=== PATIENT | male | born 1960 | race Caucasian/White ===

== ENCOUNTER 2018-05-18 17:00 | Inpatient (IN) | payer MEDICARE, MEDICAID | END 2018-05-23 12:53 | disposition home or self-care (01) | LOC: PCU 3S 17:00 | DX: A41.9 Sepsis, unspecified organism (principal); J18.9 Pneumonia, unspecified organism; J96.01 Acute respiratory failure with hypoxia; J44.1 Chronic obstructive pulmonary disease with (acute) exacerbation ==

== ENCOUNTER 2020-11-19 23:37 | Inpatient (IN) | payer MEDICARE, MEDICAID ==
[~2020-11-19] VITALS: Ht 185.4 cm; Wt 107.2 kg
[~2020-11-19 23:37] MED LIST: ALBU18HF2 INH; ALBU8HFA PO; LEVO750T46 PO; PRED10TA PO; TEST100V5 IM
--- NOTE | 2020-11-19 23:42 | NUR ---
MD examining the pt and doppler given to MD. Left leg is cold.
[2020-11-19] MEDS ORDERED: heparin 25,000 UNIT/250ml bag 250 ML IV SCH (23:55)
[2020-11-19] MEDS ORDERED: heparin 10,000 units/1 ML INJ IV PRN (23:55)
[2020-11-20] VITALS (20 sets, daily range): BP systolic 117–158; BP diastolic 77–99
[2020-11-20 00:09] LABS: BASOPHILS # (AUTO) 0.1 X10'3 (0-0.2); BASOPHILS % (AUTO) 0.9 % (0-1); EOSINOPHILS # (AUTO) 0.1 X10'3 (0-0.9); EOSINOPHILS % (AUTO) 1.1 % (0-6); HEMATOCRIT 44.5 % (42.0-52.0); HEMOGLOBIN 14.8 g/dl (14.0-17.9); LYMPHOCYTES # (AUTO) 1.3 X10'3 (1.1-4.8); LYMPHOCYTES % (AUTO) 12.6 % (21-51); MEAN CORPUSCULAR HEMOGLOBIN 28.6 PG (27.0-31.0); MEAN CORPUSCULAR HGB CONC 33.2 g/dL (33.0-36.5); MEAN PLATELET VOLUME 6.9 FL (7.4-10.4); MONOCYTES # (AUTO) 1.3 X10'3 (0-0.9); MONOCYTES % (AUTO) 12.6 % (2-12); NEUTROPHILS # (AUTO) 7.4 X10'3 (1.8-7.7); NEUTROPHILS % (AUTO) 72.8 % (42-75); PLATELET COUNT 301 X10'3 (140-440); RED BLOOD COUNT 5.18 X10'6 (4.70-6.10); RED CELL DISTRIBUTION WIDTH 15.9 % (11.5-14.5); WHITE BLOOD COUNT 10.2 X10'3 (4.5-11.0)
--- NOTE | 2020-11-20 00:10 | NUR ---
OR CREW CALLED INCLUDING DR. GRIER.
[2020-11-20 00:17] LABS: ALBUMIN 2.5 G/DL (3.4-5.0); ANION GAP 10 (8-16); BLOOD UREA NITROGEN 21 MG/DL (7-18); BUN/CREATININE RATIO 17.6 (5.4-32.0); CALCIUM 8.7 MG/DL (8.5-10.1); CHLORIDE 107 MMOL/L (99-107); CREATININE 1.19 MG/DL (0.60-1.10); GLUCOSE 109 MG/DL (70-104); POTASSIUM 4.6 MMOL/L (3.5-5.1); SODIUM 143 MMOL/L (135-145); TOTAL CARBON DIOXIDE 26.5 MMOL/L (24-32); eGFR 63 ML/MIN
[2020-11-20] MEDS ORDERED: heparin 25,000 UNIT/250ml bag 250 ML IV SCH (00:20)
[2020-11-20] MEDS ORDERED: heparin 10,000 units/1 ML INJ IV PRN (00:20)
[2020-11-20 00:27] LABS: PARTIAL THROMBOPLASTIN TIME 76 SECONDS (22-32)
--- NOTE | 2020-11-20 00:36 | NUR ---
CALLED LAKSHMI FROM [facility] . AND CIPRIANO THE OR ATTENDANT
[2020-11-20] MEDS: tPA-cathflo 2mg/2ml IV flush 4 MG in normal saline 100ml IV soln 100 ML ICATH SCH ×4 (00:50→19:09)
[2020-11-20] MEDS ORDERED: LIDOcaine 1%/PF 5ML 10 MG/ML VIAL ONE (00:59)
[2020-11-20] MEDS ORDERED: heparin 1,000 UNITS/NS 500ml 500 ML ONE ×2 (00:59→02:11)
[2020-11-20] MEDS ORDERED: midazolam 1 mg/ML 2ml injection ONE ×2 (00:59→02:02)
[2020-11-20] MEDS ORDERED: fentaNYL/PF 50MCG/1 ML 2ML syringe ONE ×3 (00:59→16:29)
[2020-11-20] MEDS ORDERED: iohexol 300mg/ml 100ml inj. ONE ×2 (00:59→13:58)
[2020-11-20] MEDS ORDERED: LIDOcaine 2% 10ml TOPICAL JELLY (Urojet) TP ONE (02:50)
[2020-11-20] MEDS ORDERED: morphine 2 MG/ML inj. syringe IV PRN (02:50)
[2020-11-20] MEDS ORDERED: potassium Cl 20 mEq SR tablet PO PRN (02:50)
[2020-11-20] MEDS ORDERED: magnesium hydroxide 30ml (MOM) UD suspension PO PRN (02:50)
[2020-11-20] MEDS ORDERED: acetaminophen 325mg tablet PO PRN ×2 (02:50)
[2020-11-20] MEDS ORDERED: ondansetron/PF 4mg/2ml inj IV PRN (02:50)
[2020-11-20] MEDS: heparin 1,000 UNITS/NS 500ml 500 ML IV SCH ×3 (03:43→19:12)
[2020-11-20] MEDS: K, MAG and/or Phos replacement - Verify level? MC SCH ×2 (04:23→08:00)
[2020-11-20 06:13] LABS: BASOPHILS # (AUTO) 0.1 X10'3 (0-0.2); BASOPHILS % (AUTO) 0.8 % (0-1); EOSINOPHILS # (AUTO) 0.1 X10'3 (0-0.9); EOSINOPHILS % (AUTO) 1.3 % (0-6); HEMATOCRIT 44.7 % (42.0-52.0); HEMOGLOBIN 14.6 g/dl (14.0-17.9); LYMPHOCYTES # (AUTO) 1.2 X10'3 (1.1-4.8); LYMPHOCYTES % (AUTO) 13.9 % (21-51); MEAN CORPUSCULAR HEMOGLOBIN 28.2 PG (27.0-31.0); MEAN CORPUSCULAR HGB CONC 32.7 g/dL (33.0-36.5); MEAN CORPUSCULAR VOLUME 86.2 FL (78-98); MEAN PLATELET VOLUME 7.2 FL (7.4-10.4); MONOCYTES # (AUTO) 1.1 X10'3 (0-0.9); MONOCYTES % (AUTO) 12.1 % (2-12); NEUTROPHILS # (AUTO) 6.5 X10'3 (1.8-7.7); NEUTROPHILS % (AUTO) 71.9 % (42-75); PLATELET COUNT 278 X10'3 (140-440); RED BLOOD COUNT 5.19 X10'6 (4.70-6.10); RED CELL DISTRIBUTION WIDTH 15.7 % (11.5-14.5)
[2020-11-20] MEDS: morphine 4 MG/ML inj SYRINge IV PRN ×2 (06:18→08:34)
--- NOTE | 2020-11-20 06:22 | NUR ---
Problems reprioritized. Patient report given, questions answered & plan of care reviewed with OLIVER Carson.
[2020-11-20 08:58] LABS: HEMATOCRIT 44.3 % (42.0-52.0); HEMOGLOBIN 14.7 g/dl (14.0-17.9); MEAN CORPUSCULAR HEMOGLOBIN 28.5 PG (27.0-31.0); MEAN CORPUSCULAR HGB CONC 33.1 g/dL (33.0-36.5); MEAN CORPUSCULAR VOLUME 86.1 FL (78-98); PLATELET COUNT 279 X10'3 (140-440); RED BLOOD COUNT 5.15 X10'6 (4.70-6.10); RED CELL DISTRIBUTION WIDTH 15.8 % (11.5-14.5); WHITE BLOOD COUNT 9.2 X10'3 (4.5-11.0)
--- NOTE | 2020-11-20 10:00 | NUR ---
Dr Oliva called to check on pt. Reported that I was unable to find a left dorsalis pedal pulse with doppler. Left posterior tibial pulse was present with doppler. Pt able to move bilateral feet. Pt reporting increasing reperfusion pain. Received orders to continue monitoring and report angiogram results.
[2020-11-20] MEDS ORDERED: BUPR150T8 PO (10:31)
[2020-11-20] MEDS ORDERED: PRED20TA PO (10:31)
[2020-11-20] MEDS ORDERED: morphine 4 MG/ML inj SYRINge IV PRN (11:55)
[2020-11-20 14:05] LABS: HEMATOCRIT 46.7 % (42.0-52.0); HEMOGLOBIN 15.2 g/dl (14.0-17.9); MEAN CORPUSCULAR HEMOGLOBIN 28.5 PG (27.0-31.0); MEAN CORPUSCULAR HGB CONC 32.5 g/dL (33.0-36.5); MEAN CORPUSCULAR VOLUME 87.5 FL (78-98); PLATELET COUNT 276 X10'3 (140-440); RED BLOOD COUNT 5.34 X10'6 (4.70-6.10); RED CELL DISTRIBUTION WIDTH 16.3 % (11.5-14.5); WHITE BLOOD COUNT 9.1 X10'3 (4.5-11.0)
[2020-11-20 14:14] LABS: ALBUMIN 2.5 G/DL (3.4-5.0); ANION GAP 10 (8-16); BLOOD UREA NITROGEN 19 MG/DL (7-18); BUN/CREATININE RATIO 17.6 (5.4-32.0); CALCIUM 8.5 MG/DL (8.5-10.1); CHLORIDE 106 MMOL/L (99-107); CREATININE 1.08 MG/DL (0.60-1.10); GLUCOSE 85 MG/DL (70-104); POTASSIUM 4.2 MMOL/L (3.5-5.1); SODIUM 143 MMOL/L (135-145); TOTAL CARBON DIOXIDE 27.1 MMOL/L (24-32); eGFR 70 ML/MIN
[2020-11-20] MEDS ORDERED: naloxone 0.4 mg/ml inj IV PRN (15:05)
--- NOTE | 2020-11-20 15:30 | NUR ---
Dr. Nance rounded on pt and assessed BLE closely. She was able to doppler and cristian a dorsalis pedal pulse and marked pulse. 500 mL fluid bolus ordered and fluid rate of NS at 125 mL/hr ordered.
[2020-11-20] MEDS ORDERED: glucagon, human recombinant 1mg kit ONE (15:42)
--- NOTE | 2020-11-20 16:00 | NUR ---
Angio nurse Keila BOYD discovered tPA infusing at incorrect rate and reported this to DR Alexander. Correction to rate made.
[2020-11-20] MEDS: HYDROmorph./NS 0.2 mg/ml CADD 100 ML IV SCH ×5 (17:12→23:00)
--- NOTE | 2020-11-20 18:24 | NUR ---
Problems reprioritized. Patient report given, questions answered & plan of care reviewed with OLIVER Martinez.
[2020-11-20] MEDS: buPROPion SR 150mg tablet PO SCH (20:52)
[2020-11-20 22:12] LABS: HEMOGLOBIN 14.4 g/dl (14.0-17.9); MEAN CORPUSCULAR HEMOGLOBIN 28.8 PG (27.0-31.0); MEAN CORPUSCULAR HGB CONC 32.8 g/dL (33.0-36.5); MEAN CORPUSCULAR VOLUME 87.8 FL (78-98); MEAN PLATELET VOLUME 7.1 FL (7.4-10.4); PLATELET COUNT 239 X10'3 (140-440); RED BLOOD COUNT 5.01 X10'6 (4.70-6.10); RED CELL DISTRIBUTION WIDTH 15.7 % (11.5-14.5); WHITE BLOOD COUNT 9.2 X10'3 (4.5-11.0)
[2020-11-21] VITALS (21 sets, daily range): BP systolic 138–167; BP diastolic 81–104
[2020-11-21] MEDS: HYDROmorph./NS 0.2 mg/ml CADD 100 ML IV SCH ×12 (01:00→23:00)
[2020-11-21 02:55] LABS: BASOPHILS # (AUTO) 0.1 X10'3 (0-0.2); BASOPHILS % (AUTO) 0.5 % (0-1); EOSINOPHILS # (AUTO) 0.1 X10'3 (0-0.9); EOSINOPHILS % (AUTO) 1.1 % (0-6); HEMATOCRIT 45.9 % (42.0-52.0); HEMOGLOBIN 15.2 g/dl (14.0-17.9); LYMPHOCYTES # (AUTO) 0.7 X10'3 (1.1-4.8); LYMPHOCYTES % (AUTO) 6.3 % (21-51); MEAN CORPUSCULAR HEMOGLOBIN 28.7 PG (27.0-31.0); MEAN CORPUSCULAR VOLUME 86.9 FL (78-98); MEAN PLATELET VOLUME 7.1 FL (7.4-10.4); MONOCYTES # (AUTO) 1.1 X10'3 (0-0.9); MONOCYTES % (AUTO) 10.6 % (2-12); NEUTROPHILS # (AUTO) 8.7 X10'3 (1.8-7.7); NEUTROPHILS % (AUTO) 81.5 % (42-75); PLATELET COUNT 267 X10'3 (140-440); RED BLOOD COUNT 5.28 X10'6 (4.70-6.10); RED CELL DISTRIBUTION WIDTH 15.6 % (11.5-14.5); WHITE BLOOD COUNT 10.7 X10'3 (4.5-11.0)
[2020-11-21] MEDS: heparin 1,000 UNITS/NS 500ml 500 ML IV SCH ×2 (03:25→16:37)
[2020-11-21] MEDS: tPA-cathflo 2mg/2ml IV flush 4 MG in normal saline 100ml IV soln 100 ML ICATH SCH ×4 (03:26→21:40)
[2020-11-21 03:29] LABS: ALANINE AMINOTRANSFERASE 32 U/L (12-78); ALBUMIN 2.5 G/DL (3.4-5.0); ALBUMIN/GLOBULIN RATIO 0.6 (1.1-1.5); ALKALINE PHOSPHATASE 135 IU/L (46-116); ANION GAP 9 (8-16); ASPARTATE AMINO TRANSFERASE 21 U/L (10-37); BILIRUBIN,TOTAL 0.8 MG/DL (0.1-1.0); BLOOD UREA NITROGEN 17 MG/DL (7-18); BUN/CREATININE RATIO 13.8 (5.4-32.0); CALCIUM 8.5 MG/DL (8.5-10.1); CHLORIDE 105 MMOL/L (99-107); CREATININE 1.23 MG/DL (0.60-1.10); GLUCOSE 89 MG/DL (70-104); POTASSIUM 4.5 MMOL/L (3.5-5.1); SODIUM 141 MMOL/L (135-145); TOTAL CARBON DIOXIDE 27.5 MMOL/L (24-32); TOTAL PROTEIN 6.5 G/DL (6.4-8.2); eGFR 60 ML/MIN
--- NOTE | 2020-11-21 06:32 | NUR ---
Problems reprioritized. Patient report given, questions answered & plan of care reviewed with OLIVER Cox.
[2020-11-21] MEDS: K, MAG and/or Phos replacement - Verify level? MC SCH (08:00)
[2020-11-21] MEDS: buPROPion SR 150mg tablet PO SCH ×2 (08:41→23:03)
[2020-11-21] MEDS: predniSONE 20 mg tablet PO SCH (08:41)
[2020-11-21 09:14] LABS: HEMATOCRIT 45.5 % (42.0-52.0); HEMOGLOBIN 15.1 g/dl (14.0-17.9); MEAN CORPUSCULAR HEMOGLOBIN 28.9 PG (27.0-31.0); MEAN CORPUSCULAR HGB CONC 33.1 g/dL (33.0-36.5); MEAN CORPUSCULAR VOLUME 87.3 FL (78-98); MEAN PLATELET VOLUME 7.2 FL (7.4-10.4); PLATELET COUNT 255 X10'3 (140-440); RED BLOOD COUNT 5.22 X10'6 (4.70-6.10); RED CELL DISTRIBUTION WIDTH 15.5 % (11.5-14.5); WHITE BLOOD COUNT 10.8 X10'3 (4.5-11.0)
[2020-11-21] MEDS: pantoprazole 40 MG vial IV SCH (12:56)
[2020-11-21 14:29] LABS: HEMOGLOBIN 15.4 g/dl (14.0-17.9); MEAN CORPUSCULAR HEMOGLOBIN 28.8 PG (27.0-31.0); MEAN CORPUSCULAR HGB CONC 32.7 g/dL (33.0-36.5); MEAN CORPUSCULAR VOLUME 88.1 FL (78-98); MEAN PLATELET VOLUME 7.2 FL (7.4-10.4); PLATELET COUNT 261 X10'3 (140-440); RED BLOOD COUNT 5.34 X10'6 (4.70-6.10); RED CELL DISTRIBUTION WIDTH 15.8 % (11.5-14.5); WHITE BLOOD COUNT 12.5 X10'3 (4.5-11.0)
[2020-11-21] MEDS: LORazepam 2 mg/ml vial IV PRN (14:53)
[2020-11-21] MEDS: dextrose 5%-normal saline 1,000 ML IV SCH ×2 (14:53→22:50)
[2020-11-21] MEDS ORDERED: iohexol 300mg/ml 100ml inj. ONE ×2 (17:37→18:37)
[2020-11-21] MEDS ORDERED: fentaNYL/PF 50MCG/1 ML 2ML syringe ONE ×2 (17:52→18:23)
[2020-11-21] MEDS ORDERED: midazolam 1 mg/ML 2ml injection ONE (18:26)
[2020-11-21] MEDS ORDERED: LIDOcaine 1%/PF 5ML 10 MG/ML VIAL ONE ×2 (18:34)
[2020-11-21] MEDS ORDERED: heparin 1,000 UNITS/NS 500ml 500 ML ONE (18:37)
[2020-11-21] MEDS ORDERED: iohexol 300 MG/1 ML 50ml polymer ONE (18:44)
[2020-11-21] MEDS ORDERED: heparin 1,000unit/ml 10ml vial 10 ML ONE (19:00)
--- NOTE | 2020-11-21 19:07 | NUR ---
Pt left transported to IR at 1745, transported via bed with heart monitor, O2 2L, mask and x2 RNs ; hand off given at bedside to transport staff ; VS stable ; ETA is 45 minutes if no further interventions beyond "pictures". Hand off given to oncoming RN, PROGRAMMING MANAGER Dilaudid, Heparin and tPA drips still infusing, D5NS @125, No s/s of distress noted.
[2020-11-21] MEDS ORDERED: tPA-cathflo 2mg/2ml IV flush 4 MG in normal saline 100ml IV soln 100 ML ICATH SCH (19:55)
[2020-11-21] MEDS ORDERED: nitroGLYCERIN-Tridil 50MG/D5W 250 ML IV ONE (19:58)
[2020-11-21] MEDS: heparin 25,000 UNIT/250ml bag 250 ML IV SCH (20:10)
[2020-11-21 22:00] LABS: HEMATOCRIT 46.7 % (42.0-52.0); HEMOGLOBIN 15.6 g/dl (14.0-17.9); MEAN CORPUSCULAR HEMOGLOBIN 28.9 PG (27.0-31.0); MEAN CORPUSCULAR HGB CONC 33.3 g/dL (33.0-36.5); MEAN CORPUSCULAR VOLUME 86.7 FL (78-98); MEAN PLATELET VOLUME 7.2 FL (7.4-10.4); PLATELET COUNT 233 X10'3 (140-440); RED BLOOD COUNT 5.39 X10'6 (4.70-6.10); RED CELL DISTRIBUTION WIDTH 15.6 % (11.5-14.5); WHITE BLOOD COUNT 10.6 X10'3 (4.5-11.0)
[2020-11-22] VITALS (19 sets, daily range): BP systolic 128–189; BP diastolic 54–111
[2020-11-22] MEDS ORDERED: labetalol 20mg/4ml (5mg/ml) syringe IV PRN ×2 (00:15→18:55)
[2020-11-22] MEDS: HYDROmorph./NS 0.2 mg/ml CADD 100 ML IV SCH ×6 (01:00→23:00)
[2020-11-22] MEDS: dextrose 5%-normal saline 1,000 ML IV SCH ×3 (05:55→21:55)
[2020-11-22 06:22] LABS: BASOPHILS # (AUTO) 0.1 X10'3 (0-0.2); BASOPHILS % (AUTO) 0.7 % (0-1); EOSINOPHILS # (AUTO) 0.1 X10'3 (0-0.9); EOSINOPHILS % (AUTO) 0.7 % (0-6); HEMATOCRIT 45.9 % (42.0-52.0); LYMPHOCYTES # (AUTO) 0.7 X10'3 (1.1-4.8); LYMPHOCYTES % (AUTO) 6.5 % (21-51); MEAN CORPUSCULAR HEMOGLOBIN 28.6 PG (27.0-31.0); MEAN CORPUSCULAR HGB CONC 32.7 g/dL (33.0-36.5); MEAN CORPUSCULAR VOLUME 87.4 FL (78-98); MEAN PLATELET VOLUME 7.5 FL (7.4-10.4); MONOCYTES # (AUTO) 1.5 X10'3 (0-0.9); MONOCYTES % (AUTO) 13.4 % (2-12); NEUTROPHILS % (AUTO) 78.7 % (42-75); PLATELET COUNT 235 X10'3 (140-440); RED BLOOD COUNT 5.25 X10'6 (4.70-6.10); RED CELL DISTRIBUTION WIDTH 15.5 % (11.5-14.5); WHITE BLOOD COUNT 11.4 X10'3 (4.5-11.0)
[2020-11-22] MEDS: K, MAG and/or Phos replacement - Verify level? MC SCH (08:00)
[2020-11-22] MEDS: tPA-cathflo 2mg/2ml IV flush 4 MG in normal saline 100ml IV soln 100 ML ICATH SCH ×2 (08:21→16:21)
[2020-11-22] MEDS: predniSONE 20 mg tablet PO SCH (08:40)
[2020-11-22] MEDS: pantoprazole 40 MG vial IV SCH (08:40)
[2020-11-22] MEDS: buPROPion SR 150mg tablet PO SCH ×2 (08:40→20:00)
[2020-11-22 09:36] LABS: HEMATOCRIT 45.2 % (42.0-52.0); HEMOGLOBIN 14.9 g/dl (14.0-17.9); MEAN CORPUSCULAR HEMOGLOBIN 28.8 PG (27.0-31.0); MEAN CORPUSCULAR HGB CONC 32.9 g/dL (33.0-36.5); MEAN CORPUSCULAR VOLUME 87.4 FL (78-98); MEAN PLATELET VOLUME 7.1 FL (7.4-10.4); PLATELET COUNT 246 X10'3 (140-440); RED BLOOD COUNT 5.17 X10'6 (4.70-6.10); RED CELL DISTRIBUTION WIDTH 15.4 % (11.5-14.5); WHITE BLOOD COUNT 10.1 X10'3 (4.5-11.0)
[2020-11-22] MEDS ORDERED: iohexol 300mg/ml 100ml inj. ONE ×2 (11:02→12:59)
[2020-11-22] MEDS ORDERED: fentaNYL/PF 50MCG/1 ML 2ML syringe ONE ×4 (12:36→20:49)
[2020-11-22] MEDS ORDERED: ondansetron/PF 4mg/2ml inj ONE ×2 (12:37→19:36)
[2020-11-22] MEDS ORDERED: midazolam 1 mg/ML 2ml injection ONE ×3 (12:50→19:29)
[2020-11-22] MEDS ORDERED: heparin 1,000 UNITS/NS 500ml 500 ML ONE (12:59)
[2020-11-22] MEDS ORDERED: LIDOcaine 1%/PF 5ML 10 MG/ML VIAL ONE (12:59)
[2020-11-22] MEDS ORDERED: heparin 1,000unit/ml 10ml vial 10 ML ONE ×2 (14:10→21:11)
[2020-11-22] MEDS ORDERED: LIDOcaine 1% (10mg/ml) 2ml vial ONE (18:20)
[2020-11-22] MEDS ORDERED: heparin 10,000 units/1 ML INJ ONE (18:20)
[2020-11-22] MEDS ORDERED: hydrALAZINE 20mg/ml inj. IV PRN (18:55)
[2020-11-22] MEDS ORDERED: morphine 4 MG/ML inj SYRINge IV PRN (18:55)
[2020-11-22] MEDS ORDERED: morphine 2 MG/ML inj. syringe IV PRN (18:55)
[2020-11-22] MEDS ORDERED: fentaNYL/PF 50MCG/1 ML 2ML syringe IV PRN ×2 (18:55)
[2020-11-22] MEDS ORDERED: ringers solution, lacted 1,000 ML IV SCH (18:55)
[2020-11-22] MEDS ORDERED: ondansetron/PF 4mg/2ml inj IV PRN (18:55)
[2020-11-22] MEDS ORDERED: propofol inj 20 ML IV ONE (19:30)
[2020-11-22] MEDS ORDERED: rocuronium 10mg/ml inj IV ONE ×2 (19:30→20:51)
[2020-11-22] MEDS ORDERED: LIDOcaine 2% (20mg/ml) 5ml vial ONE (19:30)
[2020-11-22] MEDS ORDERED: dexamethasone sod phosphate 4mg/ml inj. ONE (19:30)
--- NOTE | 2020-11-22 19:34 | NUR ---
Patient taken to surgery for procedure; left in alert and responsive state, denied respiratory and physical distress at time of leaving. Vitals 139/77; 88; 18; 98.0; 95 on 2L
[2020-11-22] MEDS ORDERED: glycopyrrolate 0.2mg/ml inj ONE (19:36)
[2020-11-22] MEDS ORDERED: neostigmine methylsulfate 1 MG/ML 10ml vial ONE (19:36)
[2020-11-22] MEDS ORDERED: sevoflurane 250ml liquid IH ONE (19:36)
[2020-11-22] MEDS ORDERED: ceFAZolin 1000mg inj ONE ×2 (19:56)
--- NOTE | 2020-11-22 20:09 | NUR ---
Pt left transported to IR for imaging; transported via bed with heart monitor, O2 2L, mask and x2 RNs ; Pt returned at 1600 ; upon return D5NS, CADD Dilaudid, and Heparin still infusing, tPA discontinued ; No s/s of distress noted. New orders to pull sheath when ACT <150 ; ACT resulted 136 at 1700 ; MD Pj notified , MD educated patient and scheduled for sx. Consent obtained; MD Joanna removed sheath at 1745; Dressing clean , dry and intact, no swelling, edema or bruising at removal site ; Frequwnt monitoring for changes ; Hand off given at bedside to transport staff ; VS stable ;, Hand off given to oncoming RN, Pt left floor with transport RNs at approx 1930
[2020-11-22] MEDS ORDERED: iohexol 300 MG/1 ML 50ml polymer ONE (20:22)
[2020-11-22 22:59] LABS: PARTIAL THROMBOPLASTIN TIME 56 SECONDS (22-32)
[2020-11-22] MEDS: heparin 25,000 UNIT/250ml bag 250 ML IV SCH (23:19)
[2020-11-23] VITALS (21 sets, daily range): BP systolic 101–168; BP diastolic 73–151
[2020-11-23] MEDS: tPA-cathflo 2mg/2ml IV flush 4 MG in normal saline 100ml IV soln 100 ML ICATH SCH (00:21)
[2020-11-23] MEDS ORDERED: heparin 25,000 UNIT/250ml bag 250 ML IV SCH ×2 (00:35→06:40)
[2020-11-23] MEDS ORDERED: heparin 10,000 units/1 ML INJ IV PRN (00:35)
[2020-11-23] MEDS: HYDROmorph./NS 0.2 mg/ml CADD 100 ML IV SCH ×3 (01:00→05:00)
[2020-11-23] MEDS: ceFAZolin/D5W- 1GM premix 50 ML IV SCH ×2 (01:42→08:48)
[2020-11-23 04:00] LABS: BASOPHILS % (AUTO) 0 % (0-1); EOSINOPHILS % (AUTO) 0 % (0-6); HEMATOCRIT 41.5 % (42.0-52.0); HEMOGLOBIN 13.6 g/dl (14.0-17.9); LYMPHOCYTES # (AUTO) 0.5 X10'3 (1.1-4.8); LYMPHOCYTES % (AUTO) 3.4 % (21-51); MEAN CORPUSCULAR HEMOGLOBIN 28.5 PG (27.0-31.0); MEAN CORPUSCULAR HGB CONC 32.9 g/dL (33.0-36.5); MEAN CORPUSCULAR VOLUME 86.6 FL (78-98); MEAN PLATELET VOLUME 7.1 FL (7.4-10.4); MONOCYTES # (AUTO) 0.9 X10'3 (0-0.9); MONOCYTES % (AUTO) 7.1 % (2-12); NEUTROPHILS # (AUTO) 11.9 X10'3 (1.8-7.7); NEUTROPHILS % (AUTO) 89.5 % (42-75); PLATELET COUNT 241 X10'3 (140-440); RED BLOOD COUNT 4.79 X10'6 (4.70-6.10); RED CELL DISTRIBUTION WIDTH 15.5 % (11.5-14.5); WHITE BLOOD COUNT 13.3 X10'3 (4.5-11.0)
[2020-11-23] MEDS: K, MAG and/or Phos replacement - Verify level? MC SCH (08:00)
[2020-11-23] MEDS: buPROPion SR 150mg tablet PO SCH ×2 (08:48→19:29)
[2020-11-23] MEDS: predniSONE 20 mg tablet PO SCH (08:48)
[2020-11-23] MEDS: normal saline 1000ml 1,000 ML IV SCH (18:00)
--- NOTE | 2020-11-23 19:13 | NUR ---
ART line D/c'd at 1630 , VIKI lopez'd at 1630 per MD order.
[2020-11-23] MEDS: apixaban 5mg tablet PO SCH ×2 (19:30→19:37)
[2020-11-24] VITALS (16 sets, daily range): BP systolic 116–149; BP diastolic 69–97
[2020-11-24] MEDS: LORazepam 2 mg/ml vial IV PRN (01:44)
[2020-11-24 03:22] LABS: BASOPHILS # (AUTO) 0.1 X10'3 (0-0.2); EOSINOPHILS # (AUTO) 0.1 X10'3 (0-0.9); EOSINOPHILS % (AUTO) 0.6 % (0-6); HEMATOCRIT 36.6 % (42.0-52.0); HEMOGLOBIN 12.1 g/dl (14.0-17.9); LYMPHOCYTES % (AUTO) 8.2 % (21-51); MEAN CORPUSCULAR HEMOGLOBIN 28.4 PG (27.0-31.0); MEAN CORPUSCULAR HGB CONC 32.9 g/dL (33.0-36.5); MEAN CORPUSCULAR VOLUME 86.2 FL (78-98); MONOCYTES # (AUTO) 1.7 X10'3 (0-0.9); NEUTROPHILS # (AUTO) 9.2 X10'3 (1.8-7.7); NEUTROPHILS % (AUTO) 76.2 % (42-75); PLATELET COUNT 253 X10'3 (140-440); RED BLOOD COUNT 4.25 X10'6 (4.70-6.10); RED CELL DISTRIBUTION WIDTH 15.6 % (11.5-14.5)
[2020-11-24 04:12] LABS: ANION GAP 2 (8-16); BLOOD UREA NITROGEN 19 MG/DL (7-18); BUN/CREATININE RATIO 19.8 (5.4-32.0); CHLORIDE 100 MMOL/L (99-107); CREATININE 0.96 MG/DL (0.60-1.10); GLUCOSE 115 MG/DL (70-104); SODIUM 130 MMOL/L (135-145); TOTAL CARBON DIOXIDE 27.7 MMOL/L (24-32); eGFR 80 ML/MIN
[2020-11-24] MEDS: K, MAG and/or Phos replacement - Verify level? MC SCH (08:00)
[2020-11-24] MEDS: pantoprazole 40mg Tablet.DR PO SCH ×2 (08:11→08:13)
[2020-11-24] MEDS: apixaban 5mg tablet PO SCH ×2 (08:11→20:12)
[2020-11-24] MEDS: buPROPion SR 150mg tablet PO SCH ×2 (08:12→20:11)
[2020-11-24] MEDS: predniSONE 20 mg tablet PO SCH (08:12)
[2020-11-24] MEDS: HYDROmorph./NS 0.2 mg/ml CADD 100 ML IV SCH ×6 (11:00→23:00)
[2020-11-24] MEDS: normal saline 1000ml 1,000 ML IV SCH (14:52)
--- NOTE | 2020-11-24 16:55 | NUR ---
Patient just arrived to his new room accompanied by ICU nurse. Patient has a wound vac connected to his left calf wound. Wound vac drainage was sanguinous. Dilaudid CADD setting was checked upon arrival. Call light was given to patient to call for assistance.
--- NOTE | 2020-11-24 18:34 | NUR ---
Problems reprioritized. Patient report given, questions answered & plan of care reviewed with Radha BOYD.
--- NOTE | 2020-11-24 18:41 | NUR ---
Patient in room [facility]. I have received report from JHOAN BOYD and had the opportunity to ask questions and assume patient care. Addendum: 11/24/20 at 1842 by Radha Jones RN Amended: Links added.
[2020-11-25] VITALS: BP 129/74
[2020-11-25] MEDS: HYDROmorph./NS 0.2 mg/ml CADD 100 ML IV SCH ×12 (01:00→23:00)
[2020-11-25 06:00] VITALS: BP 133/77
--- NOTE | 2020-11-25 06:21 | NUR ---
Student documentation: I have reviewed and agree with all interventions, assessments performed and documented by TIO BOYD STUDENT RACHELLE MILLER. Addendum: 11/25/20 at 0622 by Radha Jones RN Amended: Links added.
--- NOTE | 2020-11-25 06:22 | NUR ---
Problems reprioritized. Patient report given, questions answered & plan of care reviewed with JACKIE BOYD. Addendum: 11/25/20 at 0622 by Radha Jones RN Amended: Links added.
[2020-11-25] MEDS: pantoprazole 40mg Tablet.DR PO SCH (07:25)
[2020-11-25] MEDS: predniSONE 20 mg tablet PO SCH (07:25)
[2020-11-25] MEDS: buPROPion SR 150mg tablet PO SCH ×2 (07:25→19:35)
[2020-11-25] MEDS: apixaban 5mg tablet PO SCH ×2 (07:25→19:35)
[2020-11-25] MEDS: K, MAG and/or Phos replacement - Verify level? MC SCH (08:00)
[2020-11-25] MEDS: normal saline 1000ml 1,000 ML IV SCH (08:08)
[2020-11-25 11:00] VITALS: BP 123/77
--- NOTE | 2020-11-25 11:06 | NUR ---
Initial: Pt admitted w/ increasing L leg pain, underwent tibial thrombectomy 11/22 w/ wound vac in place per EMR. Pt able to eat well, avg 100% of meals on regular diet meeting needs. LBM 11/25. No nutritional intervention implemented at this time, will continue to monitor. Recs: 1. Continue Regular diet as tolerated 2. Bowel care per rx 3. Scaled wt this admit, weekly wts thereafter Addendum: 11/25/20 at [address] Amended: Links added.
--- NOTE | 2020-11-25 18:09 | NUR ---
Patient in room [facility] 346. I have received report from DORY BOYD and had the opportunity to ask questions and assume patient care. Addendum: 11/25/20 at 1810 by Radha Jones RN Amended: Links added.
--- NOTE | 2020-11-25 18:15 | NUR ---
Problems reprioritized. Patient report given, questions answered & plan of care reviewed with ELADIO BOYD.
[2020-11-25 20:00] VITALS: BP 128/69
[2020-11-26] VITALS: BP 139/88
[2020-11-26] MEDS: HYDROmorph./NS 0.2 mg/ml CADD 100 ML IV SCH ×12 (01:00→21:51)
[2020-11-26] MEDS: normal saline 1000ml 1,000 ML IV SCH ×2 (03:01→21:51)
--- NOTE | 2020-11-26 03:17 | NUR ---
res volume 97.3 doses given 101 attempted 127 19.52 given
[2020-11-26] MEDS: CADD PCA waste documentation MC PRN (03:29)
--- NOTE | 2020-11-26 04:37 | NUR ---
resting eyes closed using urinal to void, no drainage to left leg wound wound vac in place at 75mmhg. pt stated tonight leg more painful and using Dilaudid cadd for pain control. appears comfortable at this time.
--- NOTE | 2020-11-26 05:27 | NUR ---
Student documentation: I have reviewed and agree with all interventions, assessments performed and documented by RACHELLE KINSEY RN STUDENT. Addendum: 11/26/20 at 0528 by Radha Jones RN Amended: Links added.
--- NOTE | 2020-11-26 06:03 | NUR ---
Problems reprioritized. Patient report given, questions answered & plan of care reviewed with JOSE MIGUEL BOYD. Addendum: 11/26/20 at 0634 by Radha Jones RN Amended: Links added.
--- NOTE | 2020-11-26 06:52 | NUR ---
Patient in room [facility] 346A. I have received report from OLIVER DELACRUZ and had the opportunity to ask questions and assume patient care.
[2020-11-26 07:00] VITALS: BP 118/79
[2020-11-26] MEDS: apixaban 5mg tablet PO SCH ×2 (07:53→20:47)
[2020-11-26] MEDS: predniSONE 20 mg tablet PO SCH (07:53)
[2020-11-26] MEDS: clopidogrel 75mg tablet PO SCH (07:53)
[2020-11-26] MEDS: buPROPion SR 150mg tablet PO SCH ×2 (07:53→20:47)
[2020-11-26] MEDS: pantoprazole 40mg Tablet.DR PO SCH (07:53)
[2020-11-26] MEDS: K, MAG and/or Phos replacement - Verify level? MC SCH (07:55)
[2020-11-26] MEDS ORDERED: silver nitrate applicator stick TP ONE (08:10)
[2020-11-26 11:38] VITALS: BP 130/86
[2020-11-26] MEDS ORDERED: LIDOCAINE 1%/EPI 1:100,000 inj. 10 ML multi-dose vial ONE (14:34)
--- NOTE | 2020-11-26 15:39 | NUR ---
WOUND VAC EDUCATION PROVIDED BY WOUND CARE 1. Patient instructed to call the Wound Center or their Home Health Agency immediately if: * They notice a change in the color or amount of the fluid in the canister. * Their wound looks more red than usual or has a foul smell. * The skin around their wound looks reddened or irritated. * The dressing feels loose or appears to be loose. * They experience any increase or changes in their pain. * The alarm will not turn off. 2. Patient instructed that they should not be disconnected from suction for more than 2 hours at a time. * If they are not able to get the suction back on, they need to remove the dressing and take all of the foam out of the wound. * Then moisten sterile gauze with normal saline and place on/in the wound. * Change the dressing once a day until arrangements have been made to replace the wound vac dressing. 3. Patient instructed to turn the wound vac machine OFF and call 911 or go to the ED immediately if their canister fills rapidly with blood. 4. If any of these occur while in the hospital tell a nurse immediately. Addendum: 11/26/20 at 1539 by Mathew Lopez RN Amended: Links added.
--- NOTE | 2020-11-26 18:31 | NUR ---
Problems reprioritized. Patient report given, questions answered & plan of care reviewed with JOSE MIGUEL BOYD. Addendum: 11/26/20 at 1832 by Radha Jones RN Amended: Links added.
--- NOTE | 2020-11-26 18:39 | NUR ---
Problems reprioritized. Patient report given, questions answered & plan of care reviewed with OLIVER DELACRUZ.
[2020-11-26 20:00] VITALS: BP 139/86
--- NOTE | 2020-11-26 20:53 | NUR ---
up to bedside commode to void and stool then pt assisted back to chair leg elevated and tshirt on instead of a gown per pt request.
[2020-11-26 23:57] VITALS: BP 118/83
[2020-11-27] MEDS: HYDROmorph./NS 0.2 mg/ml CADD 100 ML IV SCH ×12 (01:00→23:00)
--- NOTE | 2020-11-27 04:35 | NUR ---
RESTING IN RECLINER CHAIR AND LEFT LEG ELEVATED. FEET WARM PALPABLE PULSES USING CADD WITH PAIN CONTROL AND HAD 4 BM'S YESTERDAY NONE SO FAR THIS AM.
--- NOTE | 2020-11-27 06:01 | NUR ---
Problems reprioritized. Patient report given, questions answered & plan of care reviewed with DORY BOYD. Addendum: 11/27/20 at 0603 by Radha Jones RN Amended: Links added.
--- NOTE | 2020-11-27 06:14 | NUR ---
Patient in room [facility] 346. I have received report from Radha BOYD and had the opportunity to ask questions and assume patient care.
--- NOTE | 2020-11-27 06:35 | NUR ---
Patient in room [facility] 346. I have received report from Eva campbell and had the opportunity to ask questions and assume patient care. Addendum: 11/27/20 at 0700 by Jinny Cobos RN booker nurse
[2020-11-27] MEDS: predniSONE 20 mg tablet PO SCH (07:40)
[2020-11-27] MEDS: buPROPion SR 150mg tablet PO SCH ×2 (07:40→20:27)
[2020-11-27] MEDS: pantoprazole 40mg Tablet.DR PO SCH (07:41)
[2020-11-27] MEDS: clopidogrel 75mg tablet PO SCH (07:41)
[2020-11-27] MEDS: apixaban 5mg tablet PO SCH ×2 (07:41→20:27)
[2020-11-27 08:00] VITALS: BP 122/92
[2020-11-27] MEDS: K, MAG and/or Phos replacement - Verify level? MC SCH (08:00)
[2020-11-27 11:00] VITALS: BP 110/83
--- NOTE | 2020-11-27 18:30 | NUR ---
Patient in room [facility] 346. I have received report from OLIVER Raymond and had the opportunity to ask questions and assume patient care. Addendum: 11/27/20 at 2216 by Amy Dee RN Amended: Links added.
--- NOTE | 2020-11-27 18:54 | NUR ---
Problems reprioritized. Patient report given, questions answered & plan of care reviewed with nishant campbell.
[2020-11-27 19:00] VITALS: BP 137/75
--- NOTE | 2020-11-27 22:18 | NUR ---
skin intact to sacrum, pt states turning and moving self freq. [place] [facility] [place] [facility] [place] [facility]i [facility]. Addendum: 11/27/20 at 2218 by Amy Dee RN Amended: Links added.
[2020-11-27] MEDS: normal saline 1000ml 1,000 ML IV SCH (22:59)
[2020-11-28] VITALS: BP 133/77
[2020-11-28] MEDS: HYDROmorph./NS 0.2 mg/ml CADD 100 ML IV SCH ×6 (01:00→11:00)
--- NOTE | 2020-11-28 06:43 | NUR ---
Problems reprioritized. Patient report given, questions answered & plan of care reviewed with OLIVER PRETTY. Addendum: 11/28/20 at 0644 by Amy Dee RN Amended: Links added.
[2020-11-28 08:00] VITALS: BP 136/77
[2020-11-28] MEDS: K, MAG and/or Phos replacement - Verify level? MC SCH (08:00)
[2020-11-28] MEDS: pantoprazole 40mg Tablet.DR PO SCH (10:02)
[2020-11-28] MEDS: buPROPion SR 150mg tablet PO SCH ×2 (10:02→20:11)
[2020-11-28] MEDS: clopidogrel 75mg tablet PO SCH (10:02)
[2020-11-28] MEDS: apixaban 5mg tablet PO SCH ×2 (10:02→20:12)
[2020-11-28] MEDS: predniSONE 20 mg tablet PO SCH (10:02)
[2020-11-28 11:00] VITALS: BP 128/75
[2020-11-28] MEDS: oxyCODONE/APAP 5-325mg tablet PO PRN ×2 (15:35→20:12)
[2020-11-28] MEDS: CADD PCA waste documentation MC PRN (15:47)
[2020-11-28] MEDS: normal saline 1000ml 1,000 ML IV SCH (18:00)
--- NOTE | 2020-11-28 18:53 | NUR ---
Gave report to Brian pizarro RN.
[2020-11-28 23:44] VITALS: BP 107/77
[2020-11-29 02:01] VITALS: BP 126/72
--- NOTE | 2020-11-29 06:34 | NUR ---
Patient in room [facility] 346. I have received report from SARA BOYD and had the opportunity to ask questions and assume patient care.
[2020-11-29 07:00] VITALS: BP 134/74
[2020-11-29] MEDS: oxyCODONE/APAP 5-325mg tablet PO PRN ×4 (07:35→22:08)
[2020-11-29] MEDS: apixaban 5mg tablet PO SCH ×2 (07:35→19:33)
[2020-11-29] MEDS: buPROPion SR 150mg tablet PO SCH ×2 (07:36→19:33)
[2020-11-29] MEDS: predniSONE 20 mg tablet PO SCH (07:36)
[2020-11-29] MEDS: pantoprazole 40mg Tablet.DR PO SCH (07:37)
[2020-11-29] MEDS: K, MAG and/or Phos replacement - Verify level? MC SCH (08:00)
--- NOTE | 2020-11-29 08:34 | NUR ---
no lab work done since 11/24/20. Primary nurse aware and is addressing concern. LAZARON Addendum: 11/29/20 at 0837 by Lauren Echeverria - Tamiko GAMEZ Amended: Links added.
--- NOTE | 2020-11-29 09:08 | NUR ---
patient on assessment this am stated he had not had pain relief since 1999hrs, appeared painful and chilled. Dopplar appled to left foot good pulse sound observed +2 odema to lower calf and upper foot. patient repositioned back in bed and percocet given for pain. Dressing changed to lateral site. will notify surgeon as labs not done since 11/24 and patient requires increase in his dose of pain meds.
[2020-11-29] MEDS: clopidogrel 75mg tablet PO SCH (09:34)
[2020-11-29] MEDS: morphine 2 MG/ML inj. syringe IV PRN ×2 (09:54→14:32)
[2020-11-29 10:33] LABS: BASOPHILS # (AUTO) 0.1 X10'3 (0-0.2); BASOPHILS % (AUTO) 0.4 % (0-1); EOSINOPHILS # (AUTO) 0.4 X10'3 (0-0.9); EOSINOPHILS % (AUTO) 2.9 % (0-6); HEMATOCRIT 35.1 % (42.0-52.0); HEMOGLOBIN 11.9 g/dl (14.0-17.9); LYMPHOCYTES # (AUTO) 0.7 X10'3 (1.1-4.8); LYMPHOCYTES % (AUTO) 5.6 % (21-51); MEAN CORPUSCULAR HEMOGLOBIN 28.5 PG (27.0-31.0); MEAN CORPUSCULAR HGB CONC 33.9 g/dL (33.0-36.5); MEAN CORPUSCULAR VOLUME 84.2 FL (78-98); MEAN PLATELET VOLUME 6.7 FL (7.4-10.4); MONOCYTES % (AUTO) 8.2 % (2-12); NEUTROPHILS # (AUTO) 10.2 X10'3 (1.8-7.7); NEUTROPHILS % (AUTO) 82.9 % (42-75); PLATELET COUNT 464 X10'3 (140-440); RED BLOOD COUNT 4.17 X10'6 (4.70-6.10); RED CELL DISTRIBUTION WIDTH 15.6 % (11.5-14.5); WHITE BLOOD COUNT 12.4 X10'3 (4.5-11.0)
[2020-11-29 10:45] LABS: ALANINE AMINOTRANSFERASE 47 U/L (12-78); ALBUMIN 2.3 G/DL (3.4-5.0); ALBUMIN/GLOBULIN RATIO 0.5 (1.1-1.5); ALKALINE PHOSPHATASE 131 IU/L (46-116); ANION GAP 11 (8-16); ASPARTATE AMINO TRANSFERASE 22 U/L (10-37); BILIRUBIN,TOTAL 0.4 MG/DL (0.1-1.0); BLOOD UREA NITROGEN 16 MG/DL (7-18); BUN/CREATININE RATIO 14.8 (5.4-32.0); CALCIUM 8.4 MG/DL (8.5-10.1); CHLORIDE 104 MMOL/L (99-107); CREATININE 1.08 MG/DL (0.60-1.10); GLUCOSE 113 MG/DL (70-104); POTASSIUM 4.1 MMOL/L (3.5-5.1); SODIUM 141 MMOL/L (135-145); TOTAL CARBON DIOXIDE 25.9 MMOL/L (24-32); TOTAL PROTEIN 6.6 G/DL (6.4-8.2); eGFR 70 ML/MIN
[2020-11-29 11:00] VITALS: BP 149/87
[2020-11-29] MEDS: normal saline 1000ml 1,000 ML IV SCH (17:59)
[2020-11-29 18:00] VITALS: BP 137/87
--- NOTE | 2020-11-29 19:03 | NUR ---
Labs done patients pain meds addressed. patient will go to [facility] 11/30/20. Ambulated 300ft. wound vac in place 10mls drainage. dressing to left calf changed. patient appears comfortable at time of report. Report given to Jamil BOYD
[2020-11-30] VITALS: BP 142/86
--- NOTE | 2020-11-30 03:49 | NUR ---
Patient in room [facility] 346. I have received report from Hailey BOYD and had the opportunity to ask questions and assume patient care.
[2020-11-30] MEDS: oxyCODONE/APAP 5-325mg tablet PO PRN ×2 (05:00→13:30)
--- NOTE | 2020-11-30 06:15 | NUR ---
Patient in room [facility] 346. I have received report from OLIVER KELLOGG and had the opportunity to ask questions and assume patient care.
[2020-11-30 06:30] VITALS: BP 105/81
[2020-11-30] MEDS: K, MAG and/or Phos replacement - Verify level? MC SCH (07:38)
[2020-11-30] MEDS ORDERED: apixaban 5mg tablet PO SCH (08:00)
--- NOTE | 2020-11-30 09:13 | NUR ---
WOUND VAC EDUCATION PROVIDED BY WOUND CARE 1. Patient instructed to call the Wound Center or their Home Health Agency immediately if: * They notice a change in the color or amount of the fluid in the canister. * Their wound looks more red than usual or has a foul smell. * The skin around their wound looks reddened or irritated. * The dressing feels loose or appears to be loose. * They experience any increase or changes in their pain. * The alarm will not turn off. 2. Patient instructed that they should not be disconnected from suction for more than 2 hours at a time. * If they are not able to get the suction back on, they need to remove the dressing and take all of the foam out of the wound. * Then moisten sterile gauze with normal saline and place on/in the wound. * Change the dressing once a day until arrangements have been made to replace the wound vac dressing. 3. Patient instructed to turn the wound vac machine OFF and call 911 or go to the ED immediately if their canister fills rapidly with blood. 4. If any of these occur while in the hospital tell a nurse immediately. Addendum: 11/30/20 at 0914 by Mathew Lopez RN Amended: Links added.
[2020-11-30] MEDS: morphine 2 MG/ML inj. syringe IV PRN (09:37)
[2020-11-30] MEDS: pantoprazole 40mg Tablet.DR PO SCH (09:39)
[2020-11-30] MEDS: clopidogrel 75mg tablet PO SCH (09:39)
[2020-11-30] MEDS: buPROPion SR 150mg tablet PO SCH (09:39)
[2020-11-30] MEDS: predniSONE 20 mg tablet PO SCH (09:41)
[2020-11-30] MEDS: normal saline 1000ml 1,000 ML IV SCH (10:00)
[2020-11-30 11:00] VITALS: BP 115/82
--- NOTE | 2020-11-30 13:45 | NUR ---
Pt transferred to [facility] by [facility]. IV DC'd, tip intact. All belongings sent w/pt.
== END 2020-11-30 13:45 | DRG 271 ==
LOC: ER 23:38 → CICU 2S 11-20 02:53 → SUR 3N 11-24 16:27
PROVIDERS: ADMIT Internal Medicine; ATTEND Internal Medicine
PROC: B41C1ZZ Fluoroscopy of Pelvic Arteries using Low Osmolar Contrast (ICD-10-PCS; 2020-11-20)
PROC: B41G1ZZ Fluoroscopy of Left Lower Extremity Arteries using Low Osmolar Contrast (ICD-10-PCS; 2020-11-20)
PROC: 04HL33Z Insertion of Infusion Device into Left Femoral Artery, Percutaneous Approach (ICD-10-PCS; 2020-11-20)
PROC: 3E05317 Introduction of Other Thrombolytic into Peripheral Artery, Percutaneous Approach (ICD-10-PCS; 2020-11-20)
PROC: B41G1ZZ Fluoroscopy of Left Lower Extremity Arteries using Low Osmolar Contrast (ICD-10-PCS; 2020-11-20)
PROC: X2CT3T7 Extirpation of Matter from Left Lower Extremity Artery using Computer-aided Mechanical Aspiration, Percutaneous Approach, New Technology Group 7 (ICD-10-PCS; principal; 2020-11-21)
PROC: 047S3ZZ Dilation of Left Posterior Tibial Artery, Percutaneous Approach (ICD-10-PCS; 2020-11-21)
PROC: 3E05317 Introduction of Other Thrombolytic into Peripheral Artery, Percutaneous Approach (ICD-10-PCS; 2020-11-21)
PROC: 04CS0ZZ Extirpation of Matter from Left Posterior Tibial Artery, Open Approach (ICD-10-PCS; 2020-11-22)
PROC: 0J8P0ZZ Division of Left Lower Leg Subcutaneous Tissue and Fascia, Open Approach (ICD-10-PCS; 2020-11-22)
PROC: 047Q3ZZ Dilation of Left Anterior Tibial Artery, Percutaneous Approach (ICD-10-PCS; 2020-11-22)
PROC: B41G1ZZ Fluoroscopy of Left Lower Extremity Arteries using Low Osmolar Contrast (ICD-10-PCS; 2020-11-22)
DX: I74.3 Embolism and thrombosis of arteries of the lower extremities (principal); N17.9 Acute kidney failure, unspecified; D86.9 Sarcoidosis, unspecified; Z96.649 Presence of unspecified artificial hip joint; J44.9 Chronic obstructive pulmonary disease, unspecified; F17.200 Nicotine dependence, unspecified, uncomplicated; E66.9 Obesity, unspecified; I10 Essential (primary) hypertension; G62.9 Polyneuropathy, unspecified; Z79.52 Long term (current) use of systemic steroids; Z85.038 Personal history of other malignant neoplasm of large intestine; Z85.47 Personal history of malignant neoplasm of testis; Z86.16 Personal history of COVID-19; Z90.79 Acquired absence of other genital organ(s); Z79.899 Other long term (current) drug therapy; Z68.31 Body mass index [BMI] 31.0-31.9, adult
CPT/HCPCS: 36246; 36415; 37184; 37211; 37213; 37214; 37228; 75710; 76937; 80048; 80053; 82948; 85025; 85027; 85347; 85384; 85610; 85730; 86885; 86900; 86901; 87081; 88304; 96374; 97110; 97116; 97161; 97530; 99152; 99153; 99291; A4215; A4618; A6258; A6402; A6449; A6455; A6550; A7000; C1725; C1729; C1751; C1757; C1758; C1769; C1887; C1894; C9113; G0378; J0690; J1100; J1170; J1610; J1644; J2001; J2060; J2250; J2270; J2405; J2704; J2710; J2997; J3010; J3490; J7030; J7040; J7042; J7120; J7512; Q9967

== ENCOUNTER 2020-12-01 08:24 | Inpatient (IN) | payer MEDICARE, MEDICAID ==
[~2020-12-01] VITALS: Ht 185.4 cm; Wt 104.0 kg
[~2020-12-01 08:24] MED LIST changes: -ALBU18HF2 INH; -ALBU8HFA PO; +BUPR150T8 PO; -LEVO750T46 PO; -PRED10TA PO; +PRED20TA PO; -TEST100V5 IM
[2020-12-01 10:13] LABS: BASOPHILS # (AUTO) 0.1 X10'3 (0-0.2); BASOPHILS % (AUTO) 0.7 % (0-1); EOSINOPHILS # (AUTO) 0.5 X10'3 (0-0.9); HEMATOCRIT 39.7 % (42.0-52.0); HEMOGLOBIN 12.8 g/dl (14.0-17.9); LYMPHOCYTES # (AUTO) 1.2 X10'3 (1.1-4.8); MEAN CORPUSCULAR HEMOGLOBIN 28.1 PG (27.0-31.0); MEAN CORPUSCULAR HGB CONC 32.4 g/dL (33.0-36.5); MEAN CORPUSCULAR VOLUME 86.8 FL (78-98); MEAN PLATELET VOLUME 6.9 FL (7.4-10.4); MONOCYTES # (AUTO) 1.1 X10'3 (0-0.9); MONOCYTES % (AUTO) 10.3 % (2-12); NEUTROPHILS # (AUTO) 7.8 X10'3 (1.8-7.7); PLATELET COUNT 541 X10'3 (140-440); RED BLOOD COUNT 4.57 X10'6 (4.70-6.10); RED CELL DISTRIBUTION WIDTH 15.8 % (11.5-14.5); WHITE BLOOD COUNT 10.7 X10'3 (4.5-11.0)
[2020-12-01 10:17] LABS: ALANINE AMINOTRANSFERASE 38 U/L (12-78); ALBUMIN 2.3 G/DL (3.4-5.0); ALBUMIN/GLOBULIN RATIO 0.5 (1.1-1.5); ALKALINE PHOSPHATASE 137 IU/L (46-116); ANION GAP 13 (8-16); ASPARTATE AMINO TRANSFERASE 19 U/L (10-37); BILIRUBIN,TOTAL 0.4 MG/DL (0.1-1.0); BLOOD UREA NITROGEN 16 MG/DL (7-18); BUN/CREATININE RATIO 14.7 (5.4-32.0); CALCIUM 8.7 MG/DL (8.5-10.1); CHLORIDE 103 MMOL/L (99-107); CREATININE 1.09 MG/DL (0.60-1.10); GLUCOSE 150 MG/DL (70-104); SODIUM 139 MMOL/L (135-145); TOTAL CARBON DIOXIDE 23.2 MMOL/L (24-32); TOTAL PROTEIN 6.8 G/DL (6.4-8.2); eGFR 69 ML/MIN
[2020-12-01] MEDS ORDERED: LORazepam 2 mg/ml vial IV ONE (10:45)
[2020-12-01] MEDS ORDERED: magnesium Cl slow-release 64mg tablet PO PRN (11:35)
[2020-12-01] MEDS ORDERED: morphine 2 MG/ML inj. syringe IV PRN (11:35)
[2020-12-01] MEDS ORDERED: potassium Cl 40MEQ/1/2NS 520ml 520 ML IV PRN ×2 (11:35)
[2020-12-01] MEDS ORDERED: magnesium hydroxide 30ml (MOM) UD suspension PO PRN (11:35)
[2020-12-01] MEDS ORDERED: potassium Cl 20 mEq SR tablet PO PRN ×2 (11:35)
[2020-12-01] MEDS ORDERED: mag hydrox/Alum hydrox/simeth 30ml oral suspension PO PRN (11:35)
[2020-12-01] MEDS ORDERED: acetaminophen 325mg tablet PO PRN ×2 (11:35)
[2020-12-01] MEDS ORDERED: magnesium 4gm in 100ml NS 100 ML IV PRN (11:35)
[2020-12-01] MEDS ORDERED: ondansetron/PF 4mg/2ml inj IV PRN (11:35)
[2020-12-01] MEDS ORDERED: diphenhydrAMINE 25mg capsule PO PRN (11:35)
[2020-12-01] MEDS ORDERED: magnesium 2GM in 50ml NS 50 ML IV PRN (11:35)
--- NOTE | 2020-12-01 12:10 | NUR ---
patient asleep,call light within reach.
--- NOTE | 2020-12-01 12:43 | NUR ---
ATTEMPTED TO CALL SURGICAL FLOOR TO CALL REPORT OLIVER GRIMM NOT AVAILABLE.
[2020-12-01 13:25] VITALS: BP 116/78
--- NOTE | 2020-12-01 17:00 | NUR ---
Per Dr Andersen, Dry Dressing with curlex for now since wound is bleeding, no need for wet to dry. Reinforce as needed. No need for dressing change orders until he unwraps it tomorrow.
[2020-12-01 19:00] VITALS: BP 124/80
--- NOTE | 2020-12-01 19:17 | NUR ---
Bleeding and reinforcement of dressing at shift change. Report given to Raffy BOYD. Bed change done, Raffy will watch for bleeding. tie tape machine operator Sadia also aware and monitoring. Pt stable. H &H stable on admit labs.
[2020-12-01] MEDS: docusate sod 100mg capsule PO SCH (19:38)
[2020-12-01] MEDS: HYDROcodone/acetaminophen 5mg/325mg tablet PO PRN (19:39)
[2020-12-01] MEDS: buPROPion SR 150mg tablet PO SCH (19:40)
[2020-12-01] MEDS: K and/or MAG REPLACEMENT MC SCH (20:00)
[2020-12-01] MEDS ORDERED: buPROPion SR 150mg tablet PO SCH (20:00)
--- NOTE | 2020-12-01 20:15 | NUR ---
DR JONES NOTIFIED: DRESSING TO LEFT LEG CONTINUES TO DRAIN LARGE AMOUNTS OF SHANA RED BLOOD AFTER DRESSING WAS REINFORCED AT BEGINNING OF SHIFT. ORDERS OBTAINED TO CHECK CBC IN AM AND REINFORCE WITH AN VINH WRAP.
[2020-12-02] VITALS: BP 116/83
[2020-12-02] MEDS: HYDROcodone/acetaminophen 5mg/325mg tablet PO PRN ×3 (02:56→17:36)
[2020-12-02 06:38] LABS: BASOPHILS # (AUTO) 0.1 X10'3 (0-0.2); BASOPHILS % (AUTO) 0.7 % (0-1); EOSINOPHILS # (AUTO) 0.5 X10'3 (0-0.9); EOSINOPHILS % (AUTO) 4.3 % (0-6); HEMATOCRIT 37.2 % (42.0-52.0); LYMPHOCYTES # (AUTO) 1.4 X10'3 (1.1-4.8); LYMPHOCYTES % (AUTO) 11.1 % (21-51); MEAN CORPUSCULAR HGB CONC 32.4 g/dL (33.0-36.5); MEAN CORPUSCULAR VOLUME 86.4 FL (78-98); MEAN PLATELET VOLUME 6.9 FL (7.4-10.4); MONOCYTES # (AUTO) 1.5 X10'3 (0-0.9); MONOCYTES % (AUTO) 12.2 % (2-12); NEUTROPHILS # (AUTO) 8.9 X10'3 (1.8-7.7); NEUTROPHILS % (AUTO) 71.7 % (42-75); PLATELET COUNT 577 X10'3 (140-440); RED BLOOD COUNT 4.31 X10'6 (4.70-6.10); RED CELL DISTRIBUTION WIDTH 15.7 % (11.5-14.5); WHITE BLOOD COUNT 12.4 X10'3 (4.5-11.0)
[2020-12-02 07:00] VITALS: BP 134/75
[2020-12-02 07:01] LABS: ALANINE AMINOTRANSFERASE 33 U/L (12-78); ALBUMIN 2.4 G/DL (3.4-5.0); ALBUMIN/GLOBULIN RATIO 0.5 (1.1-1.5); ALKALINE PHOSPHATASE 132 IU/L (46-116); ANION GAP 11 (8-16); ASPARTATE AMINO TRANSFERASE 13 U/L (10-37); BILIRUBIN,TOTAL 0.4 MG/DL (0.1-1.0); BLOOD UREA NITROGEN 18 MG/DL (7-18); BUN/CREATININE RATIO 16.8 (5.4-32.0); CALCIUM 8.6 MG/DL (8.5-10.1); CHLORIDE 99 MMOL/L (99-107); CREATININE 1.07 MG/DL (0.60-1.10); GLUCOSE 104 MG/DL (70-104); MAGNESIUM 2.1 MG/DL (1.5-2.4); POTASSIUM 3.8 MMOL/L (3.5-5.1); SODIUM 135 MMOL/L (135-145); TOTAL CARBON DIOXIDE 25.4 MMOL/L (24-32); TOTAL PROTEIN 6.8 G/DL (6.4-8.2); eGFR 71 ML/MIN
[2020-12-02] MEDS ORDERED: predniSONE 20 mg tablet PO SCH (08:00)
[2020-12-02] MEDS: K and/or MAG REPLACEMENT MC SCH ×2 (08:00→20:00)
[2020-12-02] MEDS: docusate sod 100mg capsule PO SCH ×2 (09:35→20:37)
[2020-12-02] MEDS: predniSONE 20 mg tablet PO SCH (09:35)
[2020-12-02] MEDS: buPROPion SR 150mg tablet PO SCH ×2 (09:36→20:37)
[2020-12-02 11:00] VITALS: BP 102/63
--- NOTE | 2020-12-02 17:55 | NUR ---
Report given to Kimberly BOYD, pt is doing well in bed. No excessive drainage from bandage at this time, no signs of active bleeding.
--- NOTE | 2020-12-02 18:36 | NUR ---
Patient in room [facility] 350. I have received report from OLIVER Geller and had the opportunity to ask questions and assume patient care. Dressing to left leg with miriam mendez. pulses palpable Addendum: 12/02/20 at 1839 by Amy Dee RN Amended: Links added.
[2020-12-02 19:00] VITALS: BP 107/70
[2020-12-02 23:30] VITALS: BP 119/74
[2020-12-02] MEDS: oxyCODONE/APAP 5-325mg tablet PO PRN (23:30)
--- NOTE | 2020-12-02 23:36 | NUR ---
hs snack given. Addendum: 12/02/20 at 2336 by Amy Dee RN Amended: Links added.
[2020-12-03] MEDS: oxyCODONE/APAP 5-325mg tablet PO PRN (03:19)
[2020-12-03 06:08] LABS: BASOPHILS # (AUTO) 0.1 X10'3 (0-0.2); BASOPHILS % (AUTO) 0.8 % (0-1); EOSINOPHILS # (AUTO) 0.6 X10'3 (0-0.9); EOSINOPHILS % (AUTO) 4.7 % (0-6); HEMATOCRIT 34.3 % (42.0-52.0); HEMOGLOBIN 11.2 g/dl (14.0-17.9); LYMPHOCYTES # (AUTO) 1.8 X10'3 (1.1-4.8); LYMPHOCYTES % (AUTO) 14.3 % (21-51); MEAN CORPUSCULAR HGB CONC 32.5 g/dL (33.0-36.5); MEAN PLATELET VOLUME 6.7 FL (7.4-10.4); MONOCYTES # (AUTO) 1.5 X10'3 (0-0.9); MONOCYTES % (AUTO) 11.7 % (2-12); NEUTROPHILS # (AUTO) 8.6 X10'3 (1.8-7.7); NEUTROPHILS % (AUTO) 68.5 % (42-75); PLATELET COUNT 591 X10'3 (140-440); RED BLOOD COUNT 3.99 X10'6 (4.70-6.10); RED CELL DISTRIBUTION WIDTH 15.2 % (11.5-14.5); WHITE BLOOD COUNT 12.5 X10'3 (4.5-11.0)
--- NOTE | 2020-12-03 06:20 | NUR ---
Problems reprioritized. Patient report given, questions answered & plan of care reviewed with OLIVER Raymond. Addendum: 12/03/20 at 0621 by Amy Dee RN Amended: Links added.
[2020-12-03 06:22] LABS: ALANINE AMINOTRANSFERASE 33 U/L (12-78); ALBUMIN 2.3 G/DL (3.4-5.0); ALBUMIN/GLOBULIN RATIO 0.5 (1.1-1.5); ALKALINE PHOSPHATASE 124 IU/L (46-116); ANION GAP 11 (8-16); ASPARTATE AMINO TRANSFERASE 17 U/L (10-37); BILIRUBIN,TOTAL 0.2 MG/DL (0.1-1.0); BLOOD UREA NITROGEN 21 MG/DL (7-18); BUN/CREATININE RATIO 17.8 (5.4-32.0); CALCIUM 8.3 MG/DL (8.5-10.1); CHLORIDE 102 MMOL/L (99-107); CREATININE 1.18 MG/DL (0.60-1.10); GLUCOSE 99 MG/DL (70-104); POTASSIUM 4.2 MMOL/L (3.5-5.1); SODIUM 138 MMOL/L (135-145); TOTAL CARBON DIOXIDE 24.8 MMOL/L (24-32); TOTAL PROTEIN 6.6 G/DL (6.4-8.2); eGFR 63 ML/MIN
--- NOTE | 2020-12-03 06:23 | NUR ---
Patient in room [facility] 350. I have received report from mara BOYD and had the opportunity to ask questions and assume patient care.
[2020-12-03] MEDS: predniSONE 20 mg tablet PO SCH (07:36)
[2020-12-03] MEDS: buPROPion SR 150mg tablet PO SCH ×2 (07:36→20:14)
[2020-12-03] MEDS: docusate sod 100mg capsule PO SCH ×2 (07:36→20:14)
[2020-12-03 08:00] VITALS: BP 116/84
[2020-12-03] MEDS: K and/or MAG REPLACEMENT MC SCH ×2 (08:00→20:00)
--- NOTE | 2020-12-03 10:38 | NUR ---
PAGER ID: [phone] MESSAGE: [id number] Eric, would you like the pts left leg dressing to be changed before discharge home today? or leave in place due to it bleeding before? sinan [id number]
[2020-12-03 11:00] VITALS: BP 113/69
[2020-12-03] MEDS: clopidogrel 75mg tablet PO SCH (12:51)
[2020-12-03] MEDS: apixaban 5mg tablet PO SCH ×2 (12:51→20:14)
[2020-12-03 18:00] VITALS: BP 116/79
--- NOTE | 2020-12-03 18:41 | NUR ---
Patient in room [facility] 350B. I have received report from OLIVER Stearns and had the opportunity to ask questions and assume patient care.
--- NOTE | 2020-12-03 18:47 | NUR ---
Problems reprioritized. Patient report given, questions answered & plan of care reviewed with Doris BOYD.
[2020-12-04] VITALS: BP 105/60
[2020-12-04] MEDS: oxyCODONE/APAP 5-325mg tablet PO PRN ×2 (03:18→07:21)
[2020-12-04 06:00] VITALS: BP 117/80
--- NOTE | 2020-12-04 06:09 | NUR ---
Problems reprioritized. Patient report given, questions answered & plan of care reviewed with OLIVER Stearns.
--- NOTE | 2020-12-04 06:11 | NUR ---
Patient in room [facility] 350. I have received report from Doris BOYD and had the opportunity to ask questions and assume patient care.
[2020-12-04 06:30] LABS: BASOPHILS # (AUTO) 0.1 X10'3 (0-0.2); BASOPHILS % (AUTO) 0.8 % (0-1); EOSINOPHILS # (AUTO) 0.5 X10'3 (0-0.9); EOSINOPHILS % (AUTO) 4.2 % (0-6); HEMATOCRIT 31.9 % (42.0-52.0); HEMOGLOBIN 10.7 g/dl (14.0-17.9); LYMPHOCYTES % (AUTO) 16.2 % (21-51); MEAN CORPUSCULAR HEMOGLOBIN 28.2 PG (27.0-31.0); MEAN CORPUSCULAR HGB CONC 33.4 g/dL (33.0-36.5); MEAN CORPUSCULAR VOLUME 84.5 FL (78-98); MEAN PLATELET VOLUME 6.8 FL (7.4-10.4); MONOCYTES # (AUTO) 1.4 X10'3 (0-0.9); MONOCYTES % (AUTO) 11.4 % (2-12); NEUTROPHILS # (AUTO) 8.2 X10'3 (1.8-7.7); NEUTROPHILS % (AUTO) 67.4 % (42-75); PLATELET COUNT 598 X10'3 (140-440); RED BLOOD COUNT 3.77 X10'6 (4.70-6.10); RED CELL DISTRIBUTION WIDTH 15.1 % (11.5-14.5); WHITE BLOOD COUNT 12.1 X10'3 (4.5-11.0)
[2020-12-04 06:59] LABS: ALANINE AMINOTRANSFERASE 34 U/L (12-78); ALBUMIN 2.5 G/DL (3.4-5.0); ALBUMIN/GLOBULIN RATIO 0.6 (1.1-1.5); ALKALINE PHOSPHATASE 126 IU/L (46-116); ANION GAP 13 (8-16); ASPARTATE AMINO TRANSFERASE 17 U/L (10-37); BILIRUBIN,TOTAL 0.2 MG/DL (0.1-1.0); BLOOD UREA NITROGEN 19 MG/DL (7-18); BUN/CREATININE RATIO 16.1 (5.4-32.0); CALCIUM 8.3 MG/DL (8.5-10.1); CHLORIDE 103 MMOL/L (99-107); CREATININE 1.18 MG/DL (0.60-1.10); GLUCOSE 90 MG/DL (70-104); MAGNESIUM 1.9 MG/DL (1.5-2.4); POTASSIUM 3.9 MMOL/L (3.5-5.1); SODIUM 139 MMOL/L (135-145); TOTAL CARBON DIOXIDE 22.9 MMOL/L (24-32); TOTAL PROTEIN 6.6 G/DL (6.4-8.2); eGFR 63 ML/MIN
[2020-12-04] MEDS: docusate sod 100mg capsule PO SCH (07:21)
[2020-12-04] MEDS: apixaban 5mg tablet PO SCH (07:21)
[2020-12-04] MEDS: buPROPion SR 150mg tablet PO SCH (07:21)
[2020-12-04] MEDS: clopidogrel 75mg tablet PO SCH (07:21)
[2020-12-04] MEDS: predniSONE 20 mg tablet PO SCH (07:21)
[2020-12-04] MEDS: K and/or MAG REPLACEMENT MC SCH (08:00)
--- NOTE | 2020-12-04 11:59 | NUR ---
contacted Pj about pt wanting to leave possible AMA. h/h was stable, pt had no bleeding at surgical site and is on plavix and eliquis since yesterday 12/03/20. Pt will go home on both and Pj cleared pt for discharge. will contact Baljinder about discharge. Took pictures they will be in chart and pt dressing was changed 12/04/20. he was able to assist in the changing.
--- NOTE | 2020-12-04 12:07 | NUR ---
Page Sent PAGER ID: [phone] MESSAGE: [phone] Pj Mcgee cleared pt for discharged today. Pt needs to have Plavix and Eliquis on discharge meds. thanks sinan
[2020-12-04] MEDS ORDERED: CLOP75TA34 PO (12:16)
[2020-12-04] MEDS ORDERED: APIX5TAB3 PO (12:16)
--- NOTE | 2020-12-04 14:30 | NUR ---
Patient discharge instructions reviewed with patient and patient verbalized understanding. Patients IV dc'd cannula intact. Called patients Pharmacy and they state patients medications are ready and covered by insurance. Patient was given 1 week worth of dressing supplies and he did a return demonstration on dressing changes. Patient has home health through [facility] that will be coming to see him Abbie su is setting up. Patient taken to friends vehicle via wheelchair and has all his belongings
--- NOTE | 2020-12-04 15:07 | NUR ---
Spoke to Justine out patient wound clinic and she just needs a progress note/ discharge plan note for would clinic to see patient on Thursday in wound clinic from Dr Oliva. Justine will look for the note tomorrow and contact patient to make appointment.
== END 2020-12-04 14:45 | disposition home or self-care (01) | DRG 921 ==
LOC: ER 08:25 → ED HOLD 11:35 → SUR 3N 13:41
PROVIDERS: ADMIT Internal Medicine; ATTEND Internal Medicine
DX: L76.22 Postprocedural hemorrhage of skin and subcutaneous tissue following other procedure (principal); D86.9 Sarcoidosis, unspecified; F32.A Depression, unspecified; Y83.8 Other surgical procedures as the cause of abnormal reaction of the patient, or of later complication, without mention of misadventure at the time of the procedure; Z85.048 Personal history of other malignant neoplasm of rectum, rectosigmoid junction, and anus; Z85.47 Personal history of malignant neoplasm of testis; Z87.891 Personal history of nicotine dependence; Z90.49 Acquired absence of other specified parts of digestive tract; Z79.899 Other long term (current) drug therapy; Y92.89 Other specified places as the place of occurrence of the external cause
CPT/HCPCS: 36415; 80053; 83605; 83735; 84145; 85025; 87081; 97116; 97161; 97530; 99285; G0378; J2060; J2270; J7512

== ENCOUNTER 2021-01-16 07:48 | Day surgery (SDC) | payer MEDICARE, MEDICAID ==
[~2021-01-16] VITALS: Ht 185.4 cm; Wt 111.8 kg
[2021-01-16] VITALS (10 sets, daily range): BP systolic 95–154; BP diastolic 55–93
[~2021-01-16 07:48] MED LIST changes: +APIX5TAB3 PO; +CLOP75TA34 PO; +albuterol 2.5 MG/3 ML nebule NEB ONE; +ceFOXitin 2GM-NS 100mL ADDvant 100 ML IV ONE; +famotidine 20mg tablet PO ONE; +ringers solution, lacted 1,000 ML IV SCH
[2021-01-16] MEDS ORDERED: ENOX100S3 SQ (09:02)
[2021-01-16] MEDS ORDERED: hydrocortisone sod succ/PF 100mg/2ml inj. IV ONE (09:55)
[2021-01-16] MEDS ORDERED: LIDOcaine 1% 30ml preserv. free vial ONE (10:47)
[2021-01-16] MEDS ORDERED: mineral oil 10ml sterile, topical TP ONE (10:47)
[2021-01-16] MEDS ORDERED: LIDOCAINE 1%/EPI 1:100,000 inj. 10 ML multi-dose vial ONE (12:45)
[2021-01-16] MEDS ORDERED: propofol inj 20 ML IV ONE (13:15)
[2021-01-16] MEDS ORDERED: midazolam 1 mg/ML 2ml injection ONE (13:15)
[2021-01-16] MEDS ORDERED: fentaNYL/PF 50MCG/1 ML 2ML syringe ONE (13:15)
[2021-01-16] MEDS ORDERED: ondansetron/PF 4mg/2ml inj IV PRN (13:40)
[2021-01-16] MEDS ORDERED: proCHLORperazine 10 MG/2 ml inj IV PRN (13:40)
[2021-01-16] MEDS ORDERED: morphine 4 MG/ML inj SYRINge IV PRN (13:40)
[2021-01-16] MEDS ORDERED: meperidine/PF 25mg/ml syringe IV PRN ×3 (13:40)
[2021-01-16] MEDS ORDERED: morphine 2 MG/ML inj. syringe IV PRN (13:40)
[2021-01-16] MEDS ORDERED: ringers solution, lacted 1,000 ML IV SCH (13:40)
--- NOTE | 2021-01-16 14:42 | NUR ---
Received from OR via , accompanied by Anesthesiologist DR JORDAN and report given by Anesthesiolgist. PT PRESENTTS WITH 20G LEFT FOREARM, WOUND VAC ON LEFT LOWER LEG, DRESSING ON LOWER LEFT LEG DRY AND INTACT. DRESSING ON RIGHT THIGH DRY AND INTACT. VSS. Addendum: 01/16/21 at 1753 by Katharine Presley RN, RN Amended: Links added.
--- NOTE | 2021-01-16 16:02 | NUR ---
DC INSTRUCTIONS REVIEWED WITH PT. PT SHIRIN WOUND VAC AND EXTRA COLLECTIONS DEVICE FOR WOUND VAC AND WAS INSTRUCTED TO TAKE ALL MATERIALS TO WOUND VAC APPOINTMENT. PT VSS, PT TRANSPORTED BY WHEEL CHAIR TO PARKING LOT TO GO HOME WITH KUSUM JACK. 1 PT RADHA CARPIO TO PT. Addendum: 01/16/21 at 1618 by Katharine Presley RN, RN Amended: Links added.
== END 2021-01-16 16:02 | disposition home or self-care (01) ==
LOC: PAS 07:48
PROVIDERS: ATTEND Surgery
DX: Z48.1 Encounter for planned postprocedural wound closure (principal); F32.9 Major depressive disorder, single episode, unspecified; M10.9 Gout, unspecified; G47.30 Sleep apnea, unspecified; E66.9 Obesity, unspecified; Z68.32 Body mass index [BMI] 32.0-32.9, adult; Z86.718 Personal history of other venous thrombosis and embolism; Z86.14 Personal history of Methicillin resistant Staphylococcus aureus infection; Z85.038 Personal history of other malignant neoplasm of large intestine; Z85.47 Personal history of malignant neoplasm of testis; Z90.49 Acquired absence of other specified parts of digestive tract; Z98.890 Other specified postprocedural states; Z93.3 Colostomy status; Z93.2 Ileostomy status; Z87.891 Personal history of nicotine dependence; Z72.89 Other problems related to lifestyle; Z79.899 Other long term (current) drug therapy
CPT/HCPCS: 15100; 82948; A6223; J0694; J1720; J2001; J2250; J2704; J3010; Z7506; Z7508; Z7512; A4618; A6253; A6446; A6550; A7000; J7120

== ENCOUNTER 2022-04-15 06:38 | Day surgery (SDC) | payer MEDICARE, MEDICAID ==
[2022-04-15] VITALS (8 sets, daily range): BP systolic 116–128; BP diastolic 73–90
[~2022-04-15] VITALS: Ht 182.9 cm; Wt 113.2 kg
[~2022-04-15 06:38] MED LIST changes: +ENOX100S3 SQ; -albuterol 2.5 MG/3 ML nebule NEB ONE; -ceFOXitin 2GM-NS 100mL ADDvant 100 ML IV ONE; -famotidine 20mg tablet PO ONE; -ringers solution, lacted 1,000 ML IV SCH
[2022-04-15] MEDS ORDERED: normal saline 1000ml 1,000 ML IV PRN (07:10)
[2022-04-15 07:48] LABS: ALBUMIN 3.5 G/DL (3.4-5.0); ANION GAP 11 (8-16); BASOPHILS # (AUTO) 0.1 X10'3 (0-0.2); BASOPHILS % (AUTO) 0.7 % (0-1); BLOOD UREA NITROGEN 19 MG/DL (7-18); CHLORIDE 101 MMOL/L (99-107); CREATININE 1.12 MG/DL (0.60-1.10); EOSINOPHILS # (AUTO) 0.4 X10'3 (0-0.9); EOSINOPHILS % (AUTO) 3.6 % (0-6); GLUCOSE 107 MG/DL (70-104); HEMATOCRIT 50.5 % (42.0-52.0); HEMOGLOBIN 16.8 g/dl (14.0-17.9); LYMPHOCYTES # (AUTO) 0.9 X10'3 (1.1-4.8); LYMPHOCYTES % (AUTO) 8.5 % (21-51); MEAN CORPUSCULAR HEMOGLOBIN 31.8 PG (27.0-31.0); MEAN CORPUSCULAR HGB CONC 33.3 g/dL (33.0-36.5); MEAN CORPUSCULAR VOLUME 95.5 FL (78-98); MEAN PLATELET VOLUME 7.1 FL (7.4-10.4); MONOCYTES # (AUTO) 1.2 X10'3 (0-0.9); MONOCYTES % (AUTO) 11.5 % (2-12); NEUTROPHILS # (AUTO) 7.7 X10'3 (1.8-7.7); NEUTROPHILS % (AUTO) 75.7 % (42-75); PLATELET COUNT 291 X10'3 (140-440); POTASSIUM 4.2 MMOL/L (3.5-5.1); RED BLOOD COUNT 5.29 X10'6 (4.70-6.10); RED CELL DISTRIBUTION WIDTH 16.8 % (11.5-14.5); SODIUM 137 MMOL/L (135-145); TOTAL CARBON DIOXIDE 25.5 MMOL/L (24-32); WHITE BLOOD COUNT 10.2 X10'3 (4.5-11.0); eGFR 67 ML/MIN
[2022-04-15] MEDS ORDERED: apixaban 5mg tablet PO SCH (08:00)
[2022-04-15] MEDS ORDERED: TRIA15CR61 TOP (08:06)
[2022-04-15] MEDS ORDERED: COLC0.6T72 PO (08:06)
[2022-04-15] MEDS ORDERED: ALLO100T PO (08:06)
[2022-04-15] MEDS ORDERED: PRED5TAB PO (08:06)
[2022-04-15] MEDS ORDERED: TEST200V IM (08:06)
[2022-04-15] MEDS ORDERED: FERR324T PO (08:06)
[2022-04-15] MEDS ORDERED: OFLO5DRO3 EACHEYE (08:06)
[2022-04-15] MEDS ORDERED: SPIR100T5 PO (08:06)
[2022-04-15] MEDS ORDERED: fentaNYL/PF 50MCG/1 ML 2ML syringe ONE ×4 (08:46→12:33)
[2022-04-15] MEDS ORDERED: heparin 1,000 UNITS/NS 500ml 500 ML ONE ×2 (08:46→11:50)
[2022-04-15] MEDS ORDERED: iohexol 300mg/ml 100ml inj. ONE (08:46)
[2022-04-15] MEDS ORDERED: midazolam 1 mg/ML 2ml injection ONE ×4 (08:46→12:33)
[2022-04-15] MEDS ORDERED: diphenhydrAMINE 50 mg/ml inj ONE (08:46)
[2022-04-15] MEDS ORDERED: heparin 1,000unit/ml 10ml vial 10 ML ONE (10:21)
[2022-04-15] MEDS ORDERED: nitroGLYCERIN-Tridil 50MG/D5W 250 ML IV ONE (12:09)
[2022-04-15] MEDS ORDERED: normal saline 1000ml 1,000 ML IV SCH (14:50)
== END 2022-04-15 17:00 | disposition home or self-care (01) ==
LOC: SSTAY O 06:38
PROVIDERS: ATTEND Radiology Vascular & Interventional Radiology
DX: I74.3 Embolism and thrombosis of arteries of the lower extremities (principal); U09.9 Post COVID-19 condition, unspecified; Z85.038 Personal history of other malignant neoplasm of large intestine; Z85.47 Personal history of malignant neoplasm of testis; Z98.890 Other specified postprocedural states; Z88.2 Allergy status to sulfonamides; Z88.8 Allergy status to other drugs, medicaments and biological substances; Z87.891 Personal history of nicotine dependence; Z72.89 Other problems related to lifestyle; Z79.899 Other long term (current) drug therapy
CPT/HCPCS: 36415; 37228; 37232; 75710; 80048; 85025; 85610; 99152; 99153; C1725; C1760; C1769; C1887; C1894; J1200; J1644; J2250; J3010; J3490; J7030; Q9967; A4615; A4620